=== PATIENT | female | born 2005 | race Two or more races ===

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

== ENCOUNTER 2025-04-21 08:25 | Emergency (ER) | payer MEDICAID ==
[~2025-04-21] VITALS: Ht 170.2 cm; Wt 60.2 kg
--- NOTE | 2025-04-21 08:42 | Physician Documentation ---
History of Present Illness Chief Complaint: Flank Pain Stated Complaint: ABD PAIN Time Seen by MD: 08:42 Source: patient, family (Mother) HPI 19-year-old female no pertinent history presenting with left-sided flank pain. Symptoms began proximally 2 hours prior to arrival. She was feeling fine prior to this. She had similar symptoms in the right side last week but they resolved spontaneously. She denies any fevers chills. She does report nausea. She went to her primary care physician who referred her to the ER today. Medication Reconciliation Allergies: Coded Allergies: No Known Allergies (Unverified , 12/18/24) Physical Exam Vital Signs: RN Vital Signs have been reviewed: Yes, Temperature: 97.0, Source: Temporal, Heart Rate: 73, Respiratory Rate: 15, BP: 103/81, Pulse Oximetry: 98, Weight: 60.250 Physical Exam Uncomfortable No JVD Moist mucous membranes Pulmonary clear to auscultation bilaterally Cardiac no murmur Abdomen is soft positive left CVA tenderness abdomen soft nontender Awake alert oriented Progress Progress Note Reassess patient at 11:00 a.m. patient is feeling much improved. Urine independently interpreted shows negative nitrite negative leuk esterase in minimal WBCs. 2+ bacteria and squames likely contamination Results/Orders Reviewed/noted all lab results: Yes Results/Orders Orders - NIKITA KWOK MD Urinalysis, Cult If Indicated (04/21/25 08:30) Hcg, Ur Ql (04/21/25 08:30) Cbc/Diff (04/21/25 08:30) BMP (04/21/25 08:30) Lipase (04/21/25 08:30) CMP (04/21/25 08:30) Vital Signs 04/21/25 08:26 Temp 97.0 Pulse 73 Resp 15 B/P (MAP) 103/81 Pulse Ox 98 Laboratory Tests Test 04/21/25 08:35 Urine Comment EKG/XRAY/CT/US/VASC/MRI CT : Impression CT abdomen and pelvis independently interpreted by myself shows 4 mm left ureterolithiasis with moderate hydronephrosis Medical Decision Making Additional Comments Appendicitis, , kidney stone Departure Disposition: 01 HOME / SELF CARE / HOMELESS Impression: Primary Impression: Ureterolithiasis Additional Instructions: You have a stone in your left ureter. There is a good possibility that this will pass with time over the next few days. Start taking naproxen/Aleve 500 mg twice daily. Drink lots of fluids. Take the nausea medication as needed and take the pain medication prescribed you for breakthrough pain. If you do not have resolution of your symptoms in the next few weeks please follow up with Urology. Return to the emergency department if you have any fever or worsening symptoms despite treatment Referrals: PADMINI BROOKE MD Prescriptions ONDANSETRON ODT 4mg tablet (ONDANSETRON ODT) 4 Mg Tab.rapdis 1 TAB PO Q6H PRN PRN for nausea/vomiting for 4 Days, #16 TAB 0 Refills Prov: NIKITA KWOK MD 04/21/25 Tamsulosin Hcl* (Flomax*) 0.4 Mg Cap.sr.24h 1 CAP PO DAILY for 14 Days, #14 CAP Prov: NIKITA KWOK MD 04/21/25 Oxycodone Hcl IR* (Oxycodone IR*) 5 Mg Tablet 1 TAB PO Q6H PRN for moderate to severe pain for 7 Days, #5 TAB Prov: NIKITA KWOK MD 04/21/25 Signature Scribe Signature: na Attestation: NIKITA Charles MD Apr 21, 2025 08:42
[2025-04-21 08:50] LABS: URINE HCG NEGATIVE (NEG)
[2025-04-21 08:54] LABS: BILIRUBIN,URINE SMALL (Neg); COLOR,URINE YELLOW (Yellow); GLUCOSE, URINE NEGATIVE (Neg); KETONES,URINE 15 mg/dl (Neg); LEUKOCYTE ESTERASE ,URINE NEGATIVE (Neg); OCCULT BLOOD,URINE LARGE (Neg); PROTEIN,URINE 100 mg/dl (Neg); UROBILINOGEN,URINE 0.2 E.U/dL (0.2-1.0)
[2025-04-21 09:00] LABS: BASOPHILS % (AUTO) 0.2 % (0-1); EOSINOPHILS % (AUTO) 0.1 % (0-6); HEMATOCRIT 39.9 % (35.0-45.0); HEMOGLOBIN 13.2 g/dl (12.0-16.0); LYMPHOCYTES # (AUTO) 2.4 X10'3 (1.1-4.8); LYMPHOCYTES % (AUTO) 14.2 % (21-51); MEAN CORPUSCULAR HEMOGLOBIN 28.5 PG (27.0-31.0); MEAN CORPUSCULAR HGB CONC 33.1 g/dL (33.0-36.5); MEAN PLATELET VOLUME 7.7 FL (7.4-10.4); NEUTROPHILS # (AUTO) 13.4 X10'3 (1.8-7.7); NEUTROPHILS % (AUTO) 79.5 % (42-75); PLATELET COUNT 355 X10'3 (140-440); RED BLOOD COUNT 4.64 X10'6 (4.20-5.60); WHITE BLOOD COUNT 16.9 X10'3 (4.5-11.0)
[2025-04-21 09:01] LABS: CLARITY,URINE CLOUDY (Clear); NITRITES, URINE NEGATIVE (Neg); UA COLLECTION TYPE CLN CATCH MIDSTREAM
[2025-04-21 09:03] LABS: BACTERIA,URINE 2+ /HPF (Neg); MUCUS STRANDS FEW /LPF (Neg); RBC,URINE 50-100 /HPF (0-2); SQUAMOUS EPITHELIAL CELL,UR FEW /LPF (FEW); WBC,URINE 0-4 /HPF (0-4)
[2025-04-21] MEDS: ringers solution, lacted 1,000 ML IV ONE (09:13)
[2025-04-21] MEDS: OLANZapine **IM** 10 mg inj. IM ONE (09:13)
[2025-04-21] MEDS: ketorolac trometh 15mg/ml vial 15 MG/ML ML IV ONE (09:13)
[2025-04-21] MEDS: morphine 4 MG/ML inj SYRINge IV ONE (09:14)
[2025-04-21 09:19] LABS: ALANINE AMINOTRANSFERASE 31 U/L (12-78); ALBUMIN 4.2 G/DL (3.4-5.0); ALBUMIN/GLOBULIN RATIO 1.1 (1.1-1.5); ALKALINE PHOSPHATASE 70 IU/L (20-180); ANION GAP 12 (8-16); ASPARTATE AMINO TRANSFERASE 23 U/L (10-37); BILIRUBIN,TOTAL 0.7 MG/DL (0.1-1.0); BLOOD UREA NITROGEN 16 MG/DL (7-18); BUN/CREATININE RATIO 14.3 (10.0-20.0); CALCIUM 9.3 MG/DL (8.5-10.1); CHLORIDE 104 MMOL/L (99-107); CREATININE 1.12 MG/DL (0.40-0.90); GLUCOSE 144 MG/DL (70-104); LIPASE 27 U/L (16-77); POTASSIUM 3.6 MMOL/L (3.5-5.1); SODIUM 141 MMOL/L (135-145); TOTAL CARBON DIOXIDE 24.6 MMOL/L (24-32); TOTAL PROTEIN 8.2 G/DL (6.4-8.2); eCRCL 77 ML/MIN; eGFR 63 ML/MIN
[2025-04-21] MEDS ORDERED: iohexol 300mg/ml 100ml inj. ONE (09:47)
--- NOTE | 2025-04-21 10:37 | RADIOLOGY REPORT ---
CLINICAL INFORMATION: Left lower quadrant pain. Flank pain. TECHNIQUE: Axial CT images of the abdomen and pelvis were obtained after the uneventful administrati on of 100 mL Omnipaque 300 IV contrast. Coronal and sagittal reformatted images were obtained, review ed, and stored. All CT scans at this medical facility are performed using dose modulation techniques as appropriate to a performed exam including the following: Automated exposure control was utilized; adjustment of the MA and/or KV according to patient size; and use of iterative reconstruction [employer] ue. CTDIvol = 7.63 mGy DLP = 378.57 mGy-cm COMPARISON: None FINDINGS: Lung bases: Lung bases are clear. Liver: Hepatic steatosis. Biliary: No calcified gallstones or biliary ductal dilatation. Spleen: Unremarkable. Pancreas: Unremarkable. No inflammatory changes, ductal dilatation, or mass identified. Adrenal glands: Unremarkable. No mass. Kidneys: Moderate left hydronephrosis with 4 mm obstructing calculus in the proximal left ureter nono bstructing left renal calculi visualized, with the largest measuring up to 5 mm at the midpole. Aorta/Vascular: No aneurysm or significant calcification. Retroperitoneum: No mass or lymphadenopathy. Bowel/mesentery: Nonspecific nondilated fluid-filled small bowel loops. No small bowel obstruction. A ppendix is visualized and appears unremarkable. Pelvic organs: Uterus is retroverted. Bladder: Unremarkable. No mass. Abdominal wall: No mass or hernia. Bones: No acute fracture or focal intraosseous lesion. IMPRESSION: 1. Moderate left hydronephrosis with obstructing 4 mm calculus in the proximal left ureter. 2. Additional nonobstructing left renal calculi. 3. Hepatic steatosis. 4. Nonspecific nondilated fluid-filled small bowel loops. Findings may be seen with ileus or enteriti s in the appropriate clinical setting. No small bowel obstruction.
[2025-04-21 11:00] VITALS: TEMP 97
[2025-04-21] MEDS ORDERED: OXYC-658 PO (11:24)
[2025-04-21] MEDS ORDERED: TAMS-55 PO (11:25)
[2025-04-21] MEDS ORDERED: ONDA-243 PO (11:26)
[2025-04-21] MEDS: tamsulosin 0.4mg capsule PO ONE (11:36)
[2025-04-21 11:39] VITALS: BP 111/74; PULSE 68; RESP 18; O2SAT 98
== END 2025-04-21 11:41 | disposition home or self-care (01) ==
LOC: ER 08:26
DX: N13.2 Hydronephrosis with renal and ureteral calculous obstruction (principal)
CPT/HCPCS: 36415; 74177; 80053; 81001; 81025; 83690; 85025; 96361; 96372; 96374; 96375; 99285; J1885; J2270; J3490; J7120; Q9967

== ENCOUNTER 2025-04-26 00:49 | Emergency (ER) | payer MEDICAID ==
[~2025-04-26] VITALS: Ht 170.2 cm; Wt 50.6 kg
[~2025-04-26 00:49] MED LIST: ONDA-243 PO; OXYC-658 PO; TAMS-55 PO
--- NOTE | 2025-04-26 02:06 | RADIOLOGY REPORT ---
Exam: CT CT ABDOMEN PELVIS History: Abdominal Pain Comparison Study: CT CT ABDOMEN PELVIS W/ IV CONTRAST on DOS: 04/21/25 Technique: Multidetector spiral CT of the abdomen was performed from lung bases to pubic symphysis. I maging was performed without IV contrast. Axial, coronal and sagittal multiplanar reformats were obta ined from the axial data set by the technologist. Radiation Dose : 1. Abdomen/Pelvis: CTDIvol 7.87 mGy, DLP 370.65 mGy*cm. Findings: Evaluation of solid organs is limited due to lack of intravenous contrast use. Lung Bases: No acute or significant lung base finding. Normal heart size. No pleural or pericardial effusion. Liver: The liver is normal in size. No focal lesions. Gallbladder and Biliary Tree: Unremarkable Spleen: Unremarkable Pancreas: The pancreas is grossly normal in appearance. Adrenal Glands: Unremarkable Kidneys: Punctate nonobstructing bilateral pelvocaliceal calculi. Kidneys are otherwise grossly chelly l without hydronephrosis. Bladder: Grossly unremarkable for degree of distention. Bowel: The stomach is grossly normal in appearance. Small bowel and colon are normal in caliber and d istribution. The appendix is normal. Ascites: Absent Lymphadenopathy: No mesenteric, retroperitoneal or periportal lymphadenopathy. Abdominal Wall and Mesentery: Unremarkable. Vasculature: The visualized abdominal aorta is normal in size and caliber. Evaluation of abdominal a nd pelvic vessels is limited due to lack of intravenous contrast. Pelvic Organs: Unremarkable Musculoskeletal: No aggressive focal bony lesions, acute fractures or dislocation. IMPRESSION: 1. No acute abdominal or pelvic findings. 2. Nonobstructive bilateral nephrolithiasis. Radiation optimization: All CT scans at this facility use at least one of these dose optimization sangita hniques: automated exposure control mA and/or kV adjustment per patient size (includes targeted exam s where dose is matched to clinical indication) or iterative reconstruction.
[2025-04-26 02:26] LABS: BASOPHILS # (AUTO) 0.1 X10'3 (0-0.2); BASOPHILS % (AUTO) 0.6 % (0-1); EOSINOPHILS # (AUTO) 0.1 X10'3 (0-0.9); HEMATOCRIT 38.2 % (35.0-45.0); HEMOGLOBIN 12.8 g/dl (12.0-16.0); LYMPHOCYTES # (AUTO) 3.6 X10'3 (1.1-4.8); LYMPHOCYTES % (AUTO) 32.2 % (21-51); MEAN CORPUSCULAR HEMOGLOBIN 28.8 PG (27.0-31.0); MEAN CORPUSCULAR HGB CONC 33.5 g/dL (33.0-36.5); MEAN CORPUSCULAR VOLUME 85.8 FL (78-98); MEAN PLATELET VOLUME 7.6 FL (7.4-10.4); MONOCYTES % (AUTO) 8.7 % (2-12); NEUTROPHILS # (AUTO) 6.3 X10'3 (1.8-7.7); NEUTROPHILS % (AUTO) 57.5 % (42-75); PLATELET COUNT 307 X10'3 (140-440); RED BLOOD COUNT 4.46 X10'6 (4.20-5.60); RED CELL DISTRIBUTION WIDTH 13.1 % (11.5-14.5)
[2025-04-26 02:36] LABS: ALBUMIN 3.9 G/DL (3.4-5.0); ANION GAP 10 (8-16); BLOOD UREA NITROGEN 19 MG/DL (7-18); BUN/CREATININE RATIO 15.2 (10.0-20.0); CALCIUM 9.4 MG/DL (8.5-10.1); CHLORIDE 106 MMOL/L (99-107); CREATININE 1.25 MG/DL (0.40-0.90); GLUCOSE 93 MG/DL (70-104); LIPASE 36 U/L (16-77); SODIUM 143 MMOL/L (135-145); TOTAL CARBON DIOXIDE 27.5 MMOL/L (24-32); eCRCL 58 ML/MIN; eGFR 55 ML/MIN
[2025-04-26 02:38] LABS: POTASSIUM 3.8 MMOL/L (3.5-5.1)
--- NOTE | 2025-04-26 02:41 | Physician Documentation ---
History of Present Illness ~ Chief Complaint: Abdominal Pain Stated Complaint: LEFT FLANK PAIN Time Seen by MD: 02:16 Primary Medical Doctor: [facility] Source: patient, EMS, EMS notes reviewed Mode of Arrival: EMS Exam Limitations: no limitations HPI Chief Complaint: Left lower back pain/flank pain Caveat: None Independent Historians: Paramedics History of Present Illness: Review of systems: All systems were reviewed and are negative except for what is indicated in the history of present illness. Past Medical History: Kidney stones Past Surgical History: None Social History: No tobacco use, no alcohol use, no drug use Medications: Reviewed as documented Nursing Notes Allergies: Reviewed as documented in Nursing Notes Last Menstrual Period: April 08, 2025 Medication Reconciliation Allergies: Coded Allergies: No Known Allergies (Unverified , 12/18/24) Scheduled Tamsulosin Hcl* (Flomax*), 1 CAP PO DAILY Scheduled PRN ONDANSETRON ODT 4mg tablet (Ondansetron Odt), 1 TAB PO Q6H PRN PRN for nausea/vomiting Oxycodone Hcl IR* (Oxycodone IR*), 1 TAB PO Q6H PRN for moderate to severe pain Past Medical History Last Menstrual Period: April 08, 2025 Review of Systems All Other Systems at this time: Reviewed and Negative ROS Patient denies any other acute symptoms other than above. All other systems are negative Physical Exam Vital Signs: RN Vital Signs have been reviewed: Yes, Temperature: 97.8, Source: Oral, Heart Rate: 95, Respiratory Rate: 16, BP: 117/74, Pulse Oximetry: 99, Weight: 50.600 Pulse Oximetry Reflects: adequate oxygenation Physical Exam General Appearance: No distress HEENT: Normal OP, moist oral mucosa, PERRL, EOMI Neck: supple, normal ROM, trachea midline Pulmonary: No respiratory distress, CTA, BS equal Cardiac: RRR, no murmur, rub or gallop, GI: nondistended, soft, nontender, normal bowel sounds, no guarding, no rebound Extremities: normal ROM, no swelling, non-tender Skin: intact, dry, warm, no rashes Neuro: AAOx3, speech is clear, no focal motor weakness Psych: normal affect, good eye contact, no apparent hallucination, normal speech Progress Results/Orders Results/Orders Orders - CHANI DON MD Ct Abdomen Pelvis (04/26/25 01:08) Saline Lock (04/26/25 01:08) Nothing By Mouth (04/26/25 Dinner) Completed Orders - CHANI DON MD Cbc/Diff (04/26/25 01:08) Lipase (04/26/25 01:08) Hcg, Ur Ql (04/26/25 01:08) Ct Abdomen Pelvis (04/26/25 01:08) BMP (04/26/25 01:08) Normal Saline 1000ml (Sodium Chloride 10 (04/26/25 02:45) Ua W/Microscopic, Cult If Ind (04/26/25 04:00) Medications Received in ER Medications (Trade) Dose Ordered Sig/Eddie Route PRN Reason Start Time Stop Time Status Last Admin Dose Admin (sodium chloride 1000ml IV soln) 1,000 ml ONCE ONCE IVB 04/26/25 02:45 04/26/25 02:46 DC 04/26/25 02:57 1,000 ML Vital Signs 04/26/25 04/26/25 04/26/25 00:56 02:26 03:02 Temp 97.8 Pulse 95 74 Resp 18 16 16 B/P (MAP) 117/74 117/66 (83) Pulse Ox 99 100 O2 Flow Rate 0 Laboratory Tests Test 04/26/25 01:55 04/26/25 04:00 White Blood Count 11.0 Red Blood Count 4.46 Hemoglobin 12.8 Hematocrit 38.2 Mean Corpuscular Volume 85.8 Mean Corpuscular Hemoglobin 28.8 Mean Corpuscular Hemoglobin Concent 33.5 Red Cell Distribution Width 13.1 Platelet Count 307 Mean Platelet Volume 7.6 Neutrophils (%) (Auto) 57.5 Lymphocytes (%) (Auto) 32.2 Monocytes (%) (Auto) 8.7 Eosinophils (%) (Auto) 1.0 Basophils (%) (Auto) 0.6 Neutrophils # (Auto) 6.3 Lymphocytes # (Auto) 3.6 Monocytes # (Auto) 1.0 H Eosinophils # (Auto) 0.1 Basophils # (Auto) 0.1 CBC Comment Sodium Level 143 Potassium Level 3.8 Chloride Level 106 Carbon Dioxide Level 27.5 Anion Gap 10 Blood Urea Nitrogen 19 H Creatinine 1.25 H Estimated GFR/1.73 m2 55 BUN/Creatinine Ratio 15.2 Glucose Level 93 Calcium Level 9.4 Albumin 3.9 Lipase 36 Chemistry Comments Urine Specimen Description Cln catch midstream Urine Color Red Urine Clarity Cloudy Urine pH Urine Specific [place] Urine Protein Urine Glucose (UA) Urine Ketones Urine Occult Blood Urine Nitrite Urine Bilirubin Urine Urobilinogen Urine Leukocyte Esterase Urine RBC Tntc Urine WBC 0-4 Urine Squamous Epithelial Cells Few Urine Bacteria Few Urine Culture Indicated Not ind Volume Urine Centrifuged 10 ml Urine HCG, Qualitative Negative Urine Comment See note Medical Decision Making Findings Differential diagnosis includes but is not limited to: Ureterolithiasis, nephrolithiasis, ureteral colic, urinary tract infection Abdomen and pelvis CT scan without IV contrast, indication: Left flank pain Impression: 1. No acute abdominal or pelvic findings. 2. Nonobstructive bilateral nephrolithiasis. Laboratory data independent interpretation: CBC: Unremarkable CMP: Elevated creatinine of 1.25 up from 1.18 on April 22 Urinalysis: Unremarkable Emergency department course/medical decision-making: PATIENT WAS GIVEN TORADOL PRIOR TO ARRIVAL BY THE PARAMEDICS. Patient was seen here five days ago and was found to have a 4 mm ureteral stone. That does not appear on the CT scan today and likely passed. The patient's pain has resolved. CT scan today was not ordered by me but by another person. I would limit future CT scans unless absolutely necessary. Patient has no acute findings on her CT scan today. Patient's lab work is remarkable for mildly elevated creatinine. This should be follow up by her primary care doctor as an outpatient. Patient was given 1 L of normal saline here. Patient remains asymptomatic. Patient is stable for discharge. Patient does not appear to be in any distress. Patient re-evaluated at 4:28 a.m.. Patient has been on her phone in no distress. Now she stating that she has 5/10 suprapubic pain. Urinalysis does not show any evidence of urinary tract infection. Patient will be given D Hanis 5 mg prior to her discharge. Consultation/communications: Departure Time of Disposition: 03:38 Disposition: HOME / SELF CARE / HOMELESS Impression: Primary Impression: Acute left flank pain Additional Impressions: Bilateral nephrolithiasis Elevated serum creatinine Condition: Improved Discharge Instructions: Kidney Stones, [id number] Additional Instructions: RECOMMEND YOU FOLLOW UP WITH THEIR PRIMARY CARE DOCTOR IN 1-2 WEEKS TO REPEAT BLOOD WORK AND EVALUATE YOUR KIDNEY FUNCTION. YOUR CREATININE WAS MILDLY ELEVATED WHICH WOULD SUGGEST SOME MILD DECREASED KIDNEY FUNCTION. UNDER THE EMERGENCY DEPARTMENT IF YOUR SYMPTOMS WORSEN. Education Educated: Patient Educated regarding: diagnosis, treatment, need for follow up Signature Scribe Signature: No scribe Attestation: No scribe CHANI DON MD Apr 26, 2025 02:41
[2025-04-26] MEDS: normal saline 1000ML IV soln IVB ONE (02:57)
[2025-04-26 04:08] LABS: URINE HCG NEGATIVE (NEG)
[2025-04-26 04:10] LABS: CLARITY,URINE CLOUDY (Clear); COLOR,URINE RED (Yellow); UA COLLECTION TYPE CLN CATCH MIDSTREAM
[2025-04-26 04:16] LABS: BACTERIA,URINE FEW /HPF (Neg); RBC,URINE TNTC /HPF (0-2); SQUAMOUS EPITHELIAL CELL,UR FEW /LPF (FEW); WBC,URINE 0-4 /HPF (0-4)
[2025-04-26] MEDS: HYDROcodone/acetaminophen 10/325mg tab PO ONE (04:33)
[2025-04-26 04:37] VITALS: BP 117/66; PULSE 77; RESP 16; TEMP 97.9; O2SAT 99
== END 2025-04-26 04:44 | disposition home or self-care (01) ==
LOC: ER 00:50
DX: R10.9 Unspecified abdominal pain (principal); N20.0 Calculus of kidney; R79.89 Other specified abnormal findings of blood chemistry
CPT/HCPCS: 36415; 74176; 80048; 81001; 81025; 83690; 85025; 96360; 99284; J7030

== ENCOUNTER 2025-04-28 11:08 | Emergency (ER) | payer MEDICAID ==
[~2025-04-28] VITALS: Ht 172.7 cm; Wt 60.4 kg
[2025-04-28 11:16] VITALS: TEMP 97.8
[2025-04-28] MEDS: metoclopramide 10mg tablet PO ONE (12:22)
[2025-04-28 12:23] LABS: BILIRUBIN,URINE MODERATE (Neg); CLARITY,URINE TURBID (Clear); COLOR,URINE YELLOW (Yellow); GLUCOSE, URINE NEGATIVE (Neg); KETONES,URINE >=80 mg/dl (Neg); LEUKOCYTE ESTERASE ,URINE NEGATIVE (Neg); OCCULT BLOOD,URINE LARGE (Neg); PH,URINE 5.5 (4.8-8.0); PROTEIN,URINE 100 mg/dl (Neg); UROBILINOGEN,URINE 0.2 E.U/dL (0.2-1.0)
[2025-04-28 12:26] LABS: NITRITES, URINE NEGATIVE (Neg); UA COLLECTION TYPE NON-SPECIFIED
[2025-04-28 12:43] LABS: AMORPHOUS URATES 1+; BACTERIA,URINE 2+ /HPF (Neg); RBC,URINE TNTC /HPF (0-2); RENAL CELLS, URINE FEW /HPF; SQUAMOUS EPITHELIAL CELL,UR MODERATE /LPF (FEW); TRANSITIONAL EPI CELLS,URINE FEW /HPF
[2025-04-28 13:00] LABS: URINE HCG NEGATIVE (NEG)
--- NOTE | 2025-04-28 13:02 | Physician Documentation ---
History of Present Illness Chief Complaint: Flank Pain Stated Complaint: KIDNEY STONES Time Seen by MD: 11:58 Primary Medical Doctor: [facility] Mode of Arrival: POV, Ambulatory HPI 19 year old female with L flank pain after diagnosis of L kidney stone. Seen multiple times for same pain/nausea. Repeat CT scan several days ago demonstrated stone had passed. She saw PCP who recommended be seen in ER for IV hydration. No fevers, no urinary symptoms. Medication Reconciliation Allergies: Coded Allergies: No Known Allergies (Unverified , 04/28/25) Scheduled Tamsulosin Hcl* (Flomax*), 1 CAP PO DAILY Scheduled PRN ONDANSETRON ODT 4mg tablet (Ondansetron Odt), 1 TAB PO Q6H PRN PRN for nausea/vomiting Oxycodone Hcl IR* (Oxycodone IR*), 1 TAB PO Q6H PRN for moderate to severe pain Review of Systems All Other Systems at this time: Reviewed and Negative Physical Exam Vital Signs: RN Vital Signs have been reviewed: Yes, Temperature: 97.8, Source: Temporal, Heart Rate: 79, Respiratory Rate: 16, BP: 121/72, Pulse Oximetry: 98, Weight: 60.400 Oxygen Flow Rate: 0 Physical Exam HEENT: PERRL, moist oral mucosa, EOMI Pulmonary: No respiratory distress MSK: no deformity Skin: w/d/i, no rash Neuro: alert, nonfocal Psych: normal affect Progress Results/Orders Results/Orders Orders - MODE CHAVEZ MD Hcg, Ur Ql (04/28/25 12:09) Cult Urine + [place] Ct (04/28/25 12:44) Completed Orders - MODE CHAVEZ MD Metoclopramide Tablet (Reglan Tablet) (04/28/25 12:15) Ua W/Microscopic, Cult If Ind (04/28/25 12:00) Medications Received in ER Medications (Trade) Dose Ordered Sig/Eddie Route PRN Reason Start Time Stop Time Status Last Admin Dose Admin (Reglan tablet) 10 mg ONCE ONCE PO 04/28/25 12:15 04/28/25 12:16 DC 04/28/25 12:22 10 MG Vital Signs 04/28/25 04/28/25 04/28/25 11:16 11:50 12:19 Temp 97.8 Pulse 87 79 Resp 18 16 B/P (MAP) 114/82 121/72 (88) Pulse Ox 98 98 O2 Flow Rate 0 Laboratory Tests Test 04/28/25 12:00 Urine Specimen Description Non-specified Urine Color Yellow Urine Clarity Turbid Urine pH 5.5 Urine Specific [place] >=1.030 Urine Protein 100 H Urine Glucose (UA) Negative Urine Ketones >=80 Urine Occult Blood Large H Urine Nitrite Negative Urine Bilirubin Moderate Urine Urobilinogen 0.2 Urine Leukocyte Esterase Negative Urine RBC Tntc Urine WBC 10-20 H Urine Squamous Epithelial Cells Moderate Urine Transitional Epithelial Cells Few Urine Renal Cells Few Urine Amorphous Urates 1+ Urine Bacteria 2+ Urine Culture Indicated Indicated Volume Urine Centrifuged 10 ml Urine Comment Medical Decision Making Findings 19 year old female with continued mild symptoms after kidney stone. Unclear why PCP sent for hydration today, patient appears quite well and is not vomiting. UA suggested UTI. Provided reglan, Abx, return precautions. Differential Dx:Considerations: Include: Appendicitis, Constipation, Pancreatit is, Urinary obstruction, Urinary tract infection, Urolithiasis Additional Comments Ddx = Departure Disposition: HOME / SELF CARE / HOMELESS Impression: Primary Impression: Acute left flank pain Additional Impression: UTI (urinary tract infection) Condition: Improved Discharge Instructions: Kidney Stones Referrals: NO PRIMARY CARE PROVIDER (PCP) Prescriptions Sulfamethoxazole/Trimethoprim (Bactrim Ds Tablet) 800 Mg-160 Mg Tablet 1 TAB PO Q12H for 7 Days, #14 TAB Prov: MODE CHAVEZ MD 04/28/25 Education Educated: Patient Educated regarding: diagnosis, treatment, prognosis, need for follow up Signature Scribe Signature: . Attestation: . MODE CHAVEZ MD Apr 28, 2025 13:02
[2025-04-28] MEDS ORDERED: SULF1TAB49 PO (13:20)
[2025-04-28 13:24] VITALS: BP 116/70; PULSE 70; RESP 16; O2SAT 98
[2025-04-28] MEDS: HYDROcodone/acetaminophen 5mg/325mg tablet PO ONE (13:28)
[2025-04-28] MEDS: sulfamethoxazole/trimethoprim DS (800/160mg) tablet PO ONE (13:28)
== END 2025-04-28 13:31 | disposition home or self-care (01) ==
LOC: ER 11:09
DX: N39.0 Urinary tract infection, site not specified (principal); Z79.899 Other long term (current) drug therapy
CPT/HCPCS: 81001; 81025; 87088; 99284